=== PATIENT | female | born 1995 | race Caucasian/White ===

== ENCOUNTER 2021-08-17 02:40 | Emergency (ER) | payer MEDICAID ==
[~2021-08-17] VITALS: Ht 157.5 cm; Wt 70.0 kg
[2021-08-17 02:46] VITALS: BP 134/78
[2021-08-17 03:49] LABS: BASOPHILS % 0.5 % (0.0-2.0); EOSINOPHILS % 0.9 % (0.0-5.0); MEAN CORPUSCULAR HEMOGLOBIN 30.5 pg (28.0-32.0); MEAN CORPUSCULAR VOLUME 89.5 fL (81.0-99.0); MEAN PLATELET VOLUME 7.5 fl (7.4-10.4); MONOCYTES % 7.1 % (2.0-8.0); NEUTROPHILS % 65.5 % (40.0-76.0); PLATELET 292 x1000/uL (130-400); RED BLOOD CELL COUNT 4.25 mill/uL (4.2-5.4); RED CELL DISTRIBUTION WIDTH 14.3 % (11.6-14.6)
[2021-08-17 03:54] LABS: CHLORIDE 109 mEq/L (98-107)
[2021-08-17 04:19] LABS: B-HCG QUANTITATIVE 5039 mIU/mL (<3)
[2021-08-17 05:16] LABS: CLARITY URINE CLOUDY (CLEAR); COLOR URINE RED (YELLOW); KETONES URINE TRACE (NEGATIVE); LEUKOCYTE ESTERASE URINE 3+ (NEGATIVE); NITRITE URINE NEGATIVE (NEGATIVE); OCCULT BLOOD URINE 3+ (NEGATIVE); PROTEIN URINE 2+ (NEGATIVE); SPECIFIC GRAVITY URINE 1.015 (1.005-1.030); UROBILINOGEN URINE 0.2 E.U./dL (0.2-1.0)
[2021-08-17] MEDS ORDERED: IBUP-2029 MT (06:58)
[2021-08-17] MEDS ORDERED: CEPH500C2 MT (06:58)
== END 2021-08-17 08:07 | disposition home or self-care (01) ==
LOC: ER 02:40
DX: O03.4 Incomplete spontaneous abortion without complication (principal); O23.41 Unspecified infection of urinary tract in pregnancy, first trimester; N39.0 Urinary tract infection, site not specified; Z3A.01 Less than 8 weeks gestation of pregnancy
CPT/HCPCS: 36415; 76801; 80053; 81003; 81025; 84702; 85025; 86900; 99284

== ENCOUNTER 2021-11-26 10:42 | Emergency (ER) | payer MEDICAID, OTHER ==
[~2021-11-26] VITALS: Ht 157.5 cm; Wt 68.0 kg
[~2021-11-26 10:42] MED LIST: CEPH500C2 MT; IBUP-2029 MT
[2021-11-26] MEDS ORDERED: PHEN-815 PO (11:05)
[2021-11-26] MEDS ORDERED: IBUP-2437 PO (11:05)
[2021-11-26 11:41] LABS: CLARITY URINE CLOUDY (CLEAR); COLOR URINE DARK YELLOW (YELLOW); KETONES URINE 3+ (NEGATIVE); LEUKOCYTE ESTERASE URINE 2+ (NEGATIVE); NITRITE URINE POSITIVE (NEGATIVE); OCCULT BLOOD URINE 3+ (NEGATIVE); PH URINE 5.5 (4.5-8.0); PROTEIN URINE 2+ (NEGATIVE)
[2021-11-26] MEDS ORDERED: KETOROLAC 30MG/ML VIAL IV STA (11:48)
[2021-11-26] MEDS ORDERED: SODIUM CHLORIDE 0.9% 1,000 ML IV ONE (12:00)
[2021-11-26 12:06] LABS: HEMATOCRIT. 39.7 % (36.0-48.0); HEMOGLOBIN. 13.1 g/dL (12.0-16.0); MEAN CORPUSCULAR VOLUME 91.2 fL (81.0-99.0); PLATELET 353 x1000/uL (130-400); RED BLOOD CELL COUNT 4.36 mill/uL (4.2-5.4); RED CELL DISTRIBUTION WIDTH 14.6 % (11.6-14.6)
[2021-11-26] MEDS ORDERED: MORPHINE SULFATE 4 MG/ML CPJ (NOT FOR IM USE) IV STA (12:14)
[2021-11-26] MEDS ORDERED: ONDANSETRON HCL 4MG/2ML INJ IV STA (12:14)
[2021-11-26 12:15] LABS: CHLORIDE 105 mEq/L (98-107)
[2021-11-26] MEDS ORDERED: SODIUM CHLORIDE 0.9% 1000ML BAG (SEPSIS BOLUS) IV ONE (12:15)
[2021-11-26] MEDS ORDERED: CEFTRIAXONE 2 G PREMIX 50 ML IV ONE (12:15)
[2021-11-26] MEDS: CEFTRIAXONE 1 G PREMIX 50 ML IV SCH ×2 (12:30→13:34)
[2021-11-26 13:44] LABS: PLATELET ESTIMATE NORMAL
[2021-11-26] MEDS ORDERED: IBUPROFEN 600MG TABLET PO ONE (17:15)
[2021-11-26 20:40] VITALS: BP 108/61
== END 2021-11-26 21:15 | disposition short-term general hospital (02) ==
LOC: ER 10:42 → CANBEDREQ 17:26 → ER 21:15
DX: A41.9 Sepsis, unspecified organism (principal); N12 Tubulo-interstitial nephritis, not specified as acute or chronic; R30.0 Dysuria; R39.15 Urgency of urination; Z20.822 Contact with and (suspected) exposure to COVID-19
CPT/HCPCS: 36415; 74176; 80053; 81003; 81025; 83605; 85025; 87040; 87077; 87086; 87186; 87426; 96361; 96365; 96375; 99285; C9803; J0696; J1885; J2270; J2405; J7030